=== PATIENT | female | born 1945 | race Caucasian/White ===

== ENCOUNTER 2019-06-12 08:15 | Emergency (ER) | payer BC ==
--- OUTSIDE RECORDS SUMMARY | 2019-06-12 08:31 | XMS REPORT | Continuity of Care Document ---
:1945 External Reference #:[id number] Author Name Haider Fleming MD (transmitted by agent of provider Noemi Jacobo) Address [address] [place] [address] Care Team Providers Name Role Phone Raffaele Moore MD - Surgery Care Team Information It Generalist Problems Active Problems Provider Date Gastroesophageal reflux disease Onset: 01/18/2014 Low back pain Onset: 01/18/2014 Social History Type Date Description Comments Sex Unknown Tobacco Use Start: Unknown Never Smoked Cigarettes ETOH Use Occasionally consumes alcohol Tobacco Use Start: Unknown Patient has never smoked Smoking Status Reviewed: 06/01/19 Patient has never smoked Allergies, Adverse Reactions, Alerts Description No Known Drug Allergies Medications Active Medications SIG Qnty Indications Ordering Provider Date Celecoxib use one daily 30caps M54.9 Haider 02/11/2018 100mg Capsules MD Bernadette Acetaminophen ER 1 by mouth 60tabs Haider 02/11/2018 650mg twice a day MD Bernadette Tablets ER Tramadol HCL 1 by mouth four 60tabs M54.9 Haider 08/28/2015 50mg Tablets times a day if MD Bernadette needed Immunizations CPT Code Status Date Vaccine Lot # [id number] Given 08/28/2015 Tdap - Tetanus/Diptheria/Acellular Pertussis 37354 Given 08/28/2015 Pneumococcal Conjugate Vaccine 13 Valent For Intramuscular Use 19909 Given 03/24/2006 Tetanus And Diptheria (Td) For Adult Use Preservative Free Vital Signs Date Vital Result Comment 06/01/2019 7:58am Weight 122.00 lb BP Systolic 138 mmHg BP Diastolic 84 mmHg 02/26/2019 7:59am Weight 123.00 lb BP Systolic 134 mmHg BP Diastolic 62 mmHg Results Description No Information Available Procedures Date Code Description Status 06/30/2014 [id number] Mammogram Completed Medical Devices Description No Information Available Encounters Type Date Location Provider Dx Diagnosis Office Visit 02/26/2019 [facility] Haider Fleming M54.5 Low back pain 8:00a MD Assessments Date Code Description Provider 06/01/2019 M54.5 Low back pain Haider Fleming MD 02/26/2019 M54.5 Low back pain Haider Fleming MD Plan of Treatment Future Appointment(s):08/31/2019 8:00 am - Haider Fleming MD at [facility]06/01/2019 - Haider Fleming MDM54.5 Low back painFollow up:3 months Functional Status Description No Information Available Mental Status Description No Information Available Referrals Description No Information Available
[2019-06-12 08:39] VITALS: BP 149/75
--- NOTE | 2019-06-12 08:45 | UC ---
Respiratory Complaint HPI - HPI Summary HPI Summary: Patient presents to urgent care stating something stating she's had congestion and a cough. Patient's age she's had a runny nose mostly clear but sometimes yellow. Patient states when she coughs now she has pain in her right ribs. Patient states the pain is worse with movement. Patient with a history of arthritis in her back for which she gets laser treatments in [place]. Patient' s due for her next treatment in July. Patient denies shortness of breath. States she does have some sputum but mostly swallow suck doesn't know the color. No fevers. Patient was fatigued. 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 Patient does not have a history of lung disease and does not smoke. Patient's medications as entered in the EMR by triage was reviewed this visit. - History of Current Complaint Chief Complaint: UCRespiratory Stated Complaint: COUGH Time Seen by Provider: 06/12/19 08:36 Hx Obtained From: Patient ?: No Onset/Duration: Gradual Onset Severity Initially: Mild Severity Currently: Mild Pain Intensity: 2 - Allergies/Home Medications Allergies/Adverse Reactions: Allergies Allergy/AdvReac Type Severity Reaction Status Date / Time No Known Allergies Allergy Verified 06/12/19 08:33 Home Medications: Home Medications celeCOXIB CAP* [CeleBREX CAP*] 100 mg PO DAILY PRN 06/12/19 [History Confirmed 06/12/19] PMH/Surg Hx/FS Hx/Imm Hx Previously Healthy: Yes - arthritis Cancer History: Other - Surgical History Surgical History: Yes Surgery Procedure, Year, and Place: BREAST CYST REMOVED. ANKLE SX - Family History Known Family History: Positive: Non-Contributory - Social History Occupation: Employed Full-time - senior living services at school Alcohol Use: None Substance Use Type: None Smoking Status (MU): Never Smoked Tobacco Review of Systems All Other Systems Reviewed And Are Negative: Yes Constitutional: Positive: Negative Respiratory: Positive: Cough, Other - right rib pain Is Patient Immunocompromised?: No Physical Exam - Summary Physical Exam Summary: Vital Signs Reviewed: Yes A+Ox3, no distress Eyes: Conjunctiva Clear, JEANNETTE. EOM intact and full ENT: Hearing grossly normal TM x 2 clear, turbinates inflammed, mild PND, mmoist, uvula midline, no exudate, no erythema Neck: Positive: Supple Respiratory: Positive: No respiratory distress, No accessory muscle use + cough intermittent, few scattered wheeze, no ronchi + discomfort with palpation along right mid ax line and back mid ribs. no crepitus Cardiovascular: RRR nl s1, s2 no m/r CBT <2 sec abd soft + BS nt/nd no guarding, no distension Musculoskeletal Exam: PEREZ x 4 without difficulty Strength Intact, ROM Intact Neurological: Positive: Alert, + sensation throughout Psychological: Positive: Normal Response To examiner Skin: Positive: no rash, no ecchymosis Triage Information Reviewed: Yes Vital Signs: Initial Vital Signs Temp 97.5 F 06/12/19 08:35 Pulse 91 06/12/19 08:35 Resp 16 06/12/19 08:35 BP 149/75 06/12/19 08:35 Pulse Ox 100 06/12/19 08:35 Diagnostics - Radiology No standard instances Radiology Interpretation Completed By: Radiologist - Patient Name: CLEOPATRA ORTA Medical Record#: [id number] Ordering Physician: Krystal Javier MD Acct.#: [id number] : Age: 73 Sex: F Location: [facility] Exam Date: 06/12/19853 ADM Status: REG ER Order Information: CHEST PA & LAT 2 VWS Accession Number: [id number] CPT: 70932 INDICATION: Cough and right-sided rib pain COMPARISON: Similar chest x-ray acquired September 25, 2012 TECHNIQUE: PA and lateral views of the chest were obtained. FINDINGS: The heart and mediastinum are normal in size and contour. The lungs are grossly clear. There is no evidence of large pleural effusion. Visualized bones are normal for the patient's age. There is no radiographic evidence of free air beneath the diaphragm IMPRESSION: No radiographic evidence of acute cardiopulmonary disease. <Electronically signed by Isaiah Russo MD in OV> 06/12/19944 Dictated By: Isaiah Russo MD Dictated Date/Time: 943 Transcribed Date/Time: 06/12/19943 Copy to: CC:Krystal Javier MD; Haider Fleming MD Imaging - [facility] Imaging - [facility] Imaging - [facility] [address] [facility] [address] [place] [id number] [place] [id number] [place] [phone] ph ([phone]) ph ([phone]) ph ([phone]) This report is only to be considered final once signed by the Provider(s) as displayed in the "<Electronically Signed by > " field (s). Absence of a signature indicates the report is in a draft status and still needs to be finalized. In the event this document was created by someone other than the signing Provider, the individual initiating the document will be listed in the "Entered by:" or "Dictated by:" valdez. 1 of 1 Re-Evaluation - Re-Evaluation First Eval Comment: reviewed chest radiograph with patient - no infiltrate. will rx abx - 3 weeks cough with sputum, rib discomfort. humidified air. tessalon pearls. f /u with pcp. secretion precaution. return precaution Respiratory Course/Dx - Course Course Of Treatment: Patient presents to urgent care for evaluation of a cough ongoing since . Patient states she does produce some sputum but swallows it. Patient's was some sinus congestion postnasal drip. Patient reports pain on her right ribs since she's been coughing. Patient has a prescription first Celebrex and tramadol which helps. Patient also states she's taken Tylenol intermittently with improvement. Patient's concern that she may be developing pneumonia as her symptoms have been so long standing. Patient vital signs stable. On exam patient with reproducible pain along her right mid axillary line and back with movement and deep breathing as well as drug palpation. Patient does have some scattered wheeze nasal congestion postnasal drip. We'll check chest x-ray and reassess. - Differential Dx/Diagnosis Provider Diagnosis: Cough Discharge ED - Sign-Out/Discharge Documenting (check all that apply): Patient Departure All imaging exams completed and their final reports reviewed: Yes - Discharge Plan Condition: Stable Disposition: HOME Prescriptions: Azithromycin TAB* [Zithromax TAB (Z-DAYNA) 250 mg #6 tabs] 2 tab PO .TODAY, THEN 1 DAILY #1 dayna Benzonatate CAP* [Tessalon 100 MG CAP*] 100 mg PO TID PRN #21 cap PRN Reason: Cough Patient Education Materials: Acute Cough (ED) Referrals: Haider Fleming MD [Primary Care Provider] - Additional Instructions: -Take antibiotics exactly as prescribed until gone -Stay well hydrated - avoid excess caffeine and all alcohol - Eat regular, healthy meals - Humidify the air in the room where you sleep - boil water, run a hot steam shower, vaporizer, cups of water by heat register - okay to take over the counter decongestant and cough medication - These infections are spread by secretions - do NOT share eating or drinking utensils - clean items you share with other people such as cell phones, computer mouse, TV remote, computer tablets,etc.. Once you have been antibiotics for 2 days, change your toothbrush and your pillowcase. - Okay to take medications as previously prescribed for pain - you may also take Tylenol every 6-8 hours as needed - okay to take medication as prescribed -Contact your doctor to arrange a follow-up appointment this week. Call your doctor, return here or go to the emergency department with any questions or concerns - Billing Disposition and Condition Condition: STABLE Disposition: Home
== END 2019-06-12 10:15 | disposition home or self-care (01) ==
LOC: UCCORT 08:15
DX: R05 Cough (principal); R07.81 Pleurodynia
CPT/HCPCS: 71046; 99212; G0463

== ENCOUNTER 2019-06-17 11:28 | Emergency (ER) | payer BC ==
--- OUTSIDE RECORDS SUMMARY | 2019-06-17 11:38 | XMS REPORT | Continuity of Care Document ---
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 Date Gastroesophageal reflux disease Onset: 01/18/2014 Low back pain Onset: 01/18/2014 Social History Type Date Description Comments Sex Unknown Tobacco Use Start: Unknown Never Smoked Cigarettes ETOH Use Occasionally consumes alcohol Tobacco Use Start: Unknown Patient has never smoked Smoking Status Reviewed: 06/14/19 Patient has never smoked Allergies, Adverse Reactions, Alerts Description No Known Drug Allergies Medications Active Medications SIG Qnty Indications Ordering Date Provider Cyclobenzaprine HCL 1 by mouth 45tabs M62.830 Haider 06/14/2019 5mg three times a MD Bernadette Tablets day Celecoxib use one daily 30caps M54.9 Haider 02/11/2018 100mg Capsules MD Bernadette Acetaminophen ER 1 by mouth 60tabs Haider 02/11/2018 650mg twice a day MD Bernadette Tablets ER Tramadol HCL 1 by mouth four 60tabs M54.9 Haider 08/28/2015 50mg Tablets times a day if MD Bernadette needed Immunizations CPT Code Status Date Vaccine Lot # 19535 Given 08/28/2015 Tdap - Tetanus/Diptheria/Acellular Pertussis 78872 Given 08/28/2015 Pneumococcal Conjugate Vaccine 13 Valent For Intramuscular Use 48824 Given 03/24/2006 Tetanus And Diptheria (Td) For Adult Use Preservative Free Vital Signs Date Vital Result Comment 06/14/2019 1:01pm Weight 122.00 lb BP Systolic 110 mmHg BP Diastolic 68 mmHg 06/01/2019 7:58am Weight 122.00 lb BP Systolic 138 mmHg BP Diastolic 84 mmHg Results Description No Information Available Procedures Date Code Description Status 06/30/2014 [id number] Mammogram Completed Medical Devices Description No Information Available Encounters Type Date Location Provider Dx Diagnosis Office Visit 06/14/2019 [facility] Haider M62.830 Muscle spasm of 1:00p MD Bernadette back J06.9 Acute upper respiratory infection, unspecified Office Visit 06/01/2019 8:00a [facility] Haider Fleming M54.5 Low back MD pain Office Visit 02/26/2019 8:00a [facility] Haider Fleming M54.5 Low back MD pain Assessments Date Code Description Provider 06/14/2019 M62.830 Muscle spasm of back Haider Fleming MD 06/14/2019 J06.9 Acute upper respiratory infection, Haider Fleming MD unspecified 06/01/2019 M54.5 Low back pain Haider Fleming MD 02/26/2019 M54.5 Low back pain Haider Fleming MD Plan of Treatment Future Appointment(s):08/31/2019 8:00 am - Haider Fleming MD at [facility]/14/2019 - Haider Fleming MDM62.830 Muscle spasm of backNew Medication:Cyclobenzaprine HCL 5 mg - 1 by mouth three times a dayJ06.9 Acute upper respiratory infection, unspecified Functional Status Description No Information Available Mental Status Description No Information Available Referrals Description No Information Available
[2019-06-17 11:52] VITALS: BP 161/91
--- NOTE | 2019-06-17 13:36 | UC ---
Back Pain HPI - HPI Summary HPI Summary: Pt presents with c/o upper back pain. 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 Pt was seen by PCP two days ago and given cyclobenzaprine 5 mg and pt states that is is not "strong enough" . Pt has RX for celabrex for low back pain but has not taken it because she states thsi is upper back pain. - History of Current Complaint Chief Complaint: UCBackPain Stated Complaint: LOW BACK PAIN Time Seen by Provider: 06/17/19 13:25 Hx Obtained From: Patient ?: No Onset/Duration: Gradual Onset, Lasting Days, Still Present, Worse Since - onset Timing: Constant Severity Initially: Mild Severity Currently: Mild Pain Intensity: 3 Back Pain: Is Diffuse - upper back Character: Dull, Aching, Stiffness Aggravating Factor(s): Movement Alleviating Factor(s): Rest Associated Signs And Symptoms: Positive: Negative - Risk Factors AAA Risk Factors: Negative Cauda Equina Risk Factors: Negative Epidural Abscess Risk Factors: Negative - Allergies/Home Medications Allergies/Adverse Reactions: Allergies Allergy/AdvReac Type Severity Reaction Status Date / Time No Known Allergies Allergy Verified 06/17/19 11:52 PMH/Surg Hx/FS Hx/Imm Hx Previously Healthy: Yes - Surgical History Surgical History: Yes Surgery Procedure, Year, and Place: BREAST CYST REMOVED. ANKLE SX - Family History Known Family History: Positive: Non-Contributory - Social History Occupation: Employed Full-time Lives: Alone Alcohol Use: None Substance Use Type: None Smoking Status (MU): Never Smoked Tobacco - Immunization History Vaccination Up to Date: Yes Review of Systems All Other Systems Reviewed And Are Negative: Yes Constitutional: Positive: Negative Skin: Positive: Negative Eyes: Positive: Negative ENT: Positive: Negative Respiratory: Positive: Negative Cardiovascular: Positive: Negative Gastrointestinal: Positive: Negative Genitourinary: Positive: Negative Motor: Positive: Negative Neurovascular: Positive: Negative Musculoskeletal: Positive: Myalgia - upper back Neurological: Positive: Negative Psychological: Positive: Negative Is Patient Immunocompromised?: No Physical Exam Triage Information Reviewed: Yes Vital Signs: Initial Vital Signs Temp 100.2 F 06/17/19 11:48 Pulse 100 06/17/19 11:48 Resp 19 06/17/19 11:48 BP 161/91 06/17/19 11:48 Pulse Ox 98 06/17/19 11:48 Vital Signs Reviewed: Yes Eye Exam: Normal ENT Exam: Normal Dental Exam: Normal Neck exam: Normal Respiratory Exam: Normal Respiratory: Positive: Chest non-tender Cardiovascular Exam: Normal Musculoskeletal Exam: Normal Musculoskeletal: Positive: Strength Intact, ROM Intact Neurological Exam: Normal Psychological Exam: Normal Skin Exam: Normal Back Pain Course/Dx - Differential Dx/Diagnosis Differential Diagnosis/HQI/PQRI: Arthritis, Strain Provider Diagnosis: Upper back pain Discharge ED - Sign-Out/Discharge Documenting (check all that apply): Patient Departure All imaging exams completed and their final reports reviewed: No Studies - Discharge Plan Condition: Stable Disposition: HOME Prescriptions: Cyclobenzaprine TAB* [Flexeril 10 MG TAB*] 10 mg PO Q12H PRN #6 tab PRN Reason: Pain - Mild predniSONE TAB* [Deltasone 20 MG TAB*] 20 mg PO DAILY #4 tab Patient Education Materials: Arthralgia (ED), Back Pain (ED) Referrals: Haider Fleming MD [Primary Care Provider] - As Soon As Possible - Billing Disposition and Condition Condition: STABLE Disposition: Home - Attestation Statements Provider Attestation: Per institutional requirements, I have reviewed the chart, however, I was not consulted specifically or made aware of this patient by the midlevel provider. I did not personally evaluate, interact with , or disposition this patient.
== END 2019-06-17 13:52 | disposition home or self-care (01) ==
LOC: UCCORT 11:28
DX: M54.89 Other dorsalgia (principal)
CPT/HCPCS: 99212; G0463